=== PATIENT | female | born 1975 | race Two or more races ===

== ENCOUNTER 2016-10-18 07:14 | Inpatient (IN) | payer MEDICAID ==
[2016-10-18] MEDS ORDERED: OXYTOCIN IN LR 500 ML IV ONE ×2 (08:33→08:40)
[2016-10-18] MEDS ORDERED: SODIUM CHLORIDE 0.9% FLUSH 10 ML ONE (08:39)
[2016-10-18] MEDS ORDERED: LIDOCAINE Viscous 2% 15 ML UDCUP ONE (08:39)
[2016-10-18] MEDS ORDERED: OXYTOCIN 10 UNITS/ML VIAL ONE (08:39)
[2016-10-18] MEDS ORDERED: MINERAL OIL 25 ML BOT ONE (08:39)
[2016-10-18] MEDS ORDERED: IV START KIT ONE (08:39)
[2016-10-18] MEDS ORDERED: LIDOCAINE 1% (PRES FREE) 30 ML VIAL ONE (08:39)
[2016-10-18] MEDS ORDERED: PUMP TUBING ONE (08:40)
[2016-10-18 09:35] LABS: HEMATOCRIT 33.4 % (37.0-47.0); HEMOGLOBIN 10.9 gm/l (12.0-16.0); MEAN CELL VOLUME 81.1 fl (81.0-99.0); MEAN CORPUSCULAR HEMOGLOBIN 26.5 pg (27.0-31.0); MEAN CORPUSCULAR HGB CONC 32.6 g/dl (33.0-37.0); RED CELL DISTRIBUTION WIDTH 13.6 % (11.5-14.5)
[2016-10-18] MEDS ORDERED: LIDOCAINE 1% (PRES FREE) 30 ML VIAL IF ONE (10:46)
[2016-10-18] MEDS ORDERED: MINERAL OIL 25 ML BOT TP ONE (10:46)
[2016-10-18] MEDS ORDERED: MAGNESIUM HYDROXIDE 30 ML UDCUP PO PRN (12:15)
[2016-10-18] MEDS ORDERED: CALCIUM CARBONATE 500 MG TAB.CHEW PO PRN (12:15)
[2016-10-18] MEDS ORDERED: BENZOCAINE/MENTHOL 60 APPLIC/BOT TP PRN (12:15)
[2016-10-18] MEDS ORDERED: LANOLIN 50 APPLIC/7G TUBE TP PRN (12:15)
--- NOTE | 2016-10-18 12:23 | PCMAN ---
OB Admission Note - History : 7 Term: 5 : 1 Abortions (S&E): 0 Livin EDC:: 10/22/16 Gestational Age (weeks): 39 Days (#/7): 2 Admit Cervical Dilation:: 4 Admit Cervical Effacement (%):: 100 Admit Station:: -1 Admit Presentaton:: VERTEX Membrane Status: Intact Labor Onset (Date): 10/18/16 Labor Onset (Time): 05:00 Contractions: Yes Contraction Frequency:: 2-3 min Heart Rate:: 140 Status:: cat 1 EFW:: 3 kg Summary of Course:: Complicated by AMA and grandmultiparity. O/W doing well. - Labs Blood Type: O (+) positive Rubella Status: Immune GBS Status: Negative Abnormal Labs: None - Review of Systems Good FM, no lof or vb. UC's since yesterday at 0500, but today at 0500. No f/c /n/v. No cough or flu like illness. No SHEN, vis changes, ruq pain or new swelling. - Physical Exam General: Afebrile, Moderate Distress (with uc's.) Psych/Mental Status: Mood/Affect Appropriate, Bonding Well Neurological: Alert Lungs: Clear to Auscultation Bilaterally Cardiovascular: Regular Rate and Rhythm, No Murmur Abdomen: Normal Bowel Sounds Extremities: No Edema Skin: Warm, Dry, No Rash - Problems (1) Advanced maternal age (AMA) in Status: Acute Code: [id number] Assessment/Plan: Here in active labor, admit and plan for delivery. Did not have w/u for ama. (2) Normal labor Status: Acute Code: O80 Assessment/Plan: Does not desire meds or epidural. Cat 1 FHT's. VSSAF. Admit for expectant management. All labs and hx reviewed.
--- NOTE | 2016-10-18 12:26 | PCMDEL ---
Delivery Note - Labor 1st stage (hr/min):: [id number] 2nd stage (hr/min):: 9 min 3rd stage (hr/min):: 7 min Total (hr/min):: 6hr 9min Pushed (hr/min):: 9 min - Delivery Delivery (Date): 10/18/16 Delivery (Time): 11:02 Gender: Female Presentation: Cephalic Position: OA Umbilical Cord: 3 Vessel Delayed Cord Clamping:: 2-3 min Placenta:: wnl EBL:: 300ml Perineum:: 1st degree perineal lac. Suture:: 4-0 vicryl in usual fashion. Anesthesia/Meds:: local lido Length ROM:: 1.5 hour Comments:: of vigorous female over first degree perineal lac and particulate mec. Had bradycardia with the last few pushes that resolved with positional changes and O2. Baby did not require intubation as breathing without difficulty.
[2016-10-18] MEDS: HYDROCODONE/ACETAMINOPHEN 5/325MG TABLET PO PRN ×2 (12:27→17:52)
[2016-10-18] MEDS: IBUPROFEN 600 MG TABLET PO PRN ×2 (12:28→18:51)
[2016-10-18 14:04] VITALS: BMI 27.6
[2016-10-18] MEDS: DOCUSATE SODIUM 100 MG CAPSULE PO PRN (17:52)
[2016-10-19 07:00] LABS: HEMATOCRIT 29.7 % (37.0-47.0); HEMOGLOBIN 9.6 gm/l (12.0-16.0)
[2016-10-19] MEDS: DOCUSATE SODIUM 100 MG CAPSULE PO PRN ×2 (11:24→20:30)
[2016-10-19] MEDS: IBUPROFEN 600 MG TABLET PO PRN ×2 (11:24→20:30)
--- NOTE | 2016-10-19 20:14 | PDOC44 ---
- Subjective Day: 1 Doing well. Wants to stay another night. Able to void, ambulate, take POs. No fever or chills. Reports Flatus, Reports Pain Tolerable, Reports , Reports Tolerating Regular Diet, Denies Nausea, Denies Vomiting - Objective Temp Pulse Resp BP Pulse Ox 98.9 F 76 16 115/86 10/19/16 14:50 10/19/16 14:50 10/19/16 14:50 10/19/16 14:50 Lab Results 10/19/16 06:15 Hgb 9.6 L Hct 29.7 L Current Medications Generic Name Dose Route Start Last Admin Trade Name Freq PRN Reason Stop Dose Admin Acetaminophen/Hydrocodone Bitart 1 - 2 tab 10/18/16 12:15 10/18/16 17:52 [place] 5/325 PO 2 tab Q4H PRN Administration Pain (Moderate) Benzocaine/Menthol 1 applic 10/18/16 12:15 10/19/16 11:50 Dermoplast TP 1 bot PRN PRN Administration Patient Comfort Calcium Carbonate/Glycine 500 - 1,000 mg 10/18/16 12:15 Tums PO BID PRN Indigestion Docusate Sodium 100 mg 10/18/16 12:15 10/19/16 11:24 Colace PO 100 mg DAILY PRN Administration Comfort Emollient Ointment 1 applic 10/18/16 12:15 10/19/16 11:51 [id number] TP 1 tube PRN PRN Administration sore nipples Ibuprofen 600 mg 10/18/16 12:15 10/19/16 11:24 Motrin PO 600 mg Q6H PRN Administration Pain (Mild) Magnesium Hydroxide 30 ml 10/18/16 12:15 Milk Of Magnesia PO BEDTIME PRN Constipation Sodium Chloride 10 ml 10/18/16 08:33 10/18/16 12:33 Normal Saline 10ml Flush IV 10 ml PRN PRN Administration IV Flush Sodium Chloride 10 ml 10/18/16 09:00 10/19/16 17:11 Normal Saline 10ml Flush IV Not Given Q8HR CRISTIAN - Physical Exam General: Afebrile, No Acute Distress Psych/Mental Status: Mood/Affect Appropriate, Judgment/Insight Intact, Bonding Well Neurological: Grossly Intact, Alert, Normal Gait, Normal Speech HEENT: Atraumatic, Mucous membr. moist/pink Lungs: Clear to Auscultation Bilaterally Cardiovascular: Regular Rate and Rhythm Breast: Soft Fundus: Firm, Midline Extremities: Full ROM, No Edema, No Tenderness Skin: Normal Color, Warm, Dry, Intact, No Rash - Problems:Assessment/Plan (1) Advanced maternal age (AMA) in Status: Acute Assessment/Plan: Presented in active labor, had . Did not have w/u for ama. (2) (spontaneous vaginal delivery) Status: Acute Assessment/Plan: Doing well PPD#1 s/p uncomplicated Routine PP care Support BF Anticipate DC home in AM Disposition: Stable, Anticipate DC Home Tomorrow
[2016-10-20 07:40] VITALS: BP 97/78
[2016-10-20] MEDS: IBUPROFEN 600 MG TABLET PO PRN (08:14)
--- NOTE | 2016-10-20 11:59 | PDOC39B ---
Hospital Course: ADMIT DATE: 10/18/16 DISCHARGE DATE: 10/20/16 ADMISSION DIAGNOSES: Intrauterine at term PROCEDURES: none HISTORY OF PRESENT ILLNESS: 41 year old G7 T5 L7 at 39 weeks 2 days presented in active labor. HOSPITAL COURSE: The patient had normal vaginal delivery on 10/18/16. By day of discharge the patient is ambulating, eating, voiding, and passing flatus without difficulty. Pain is controlled and lochia is appropriate. She is . - Physical Exam Vital Signs: Temp Pulse Resp BP Pulse Ox 98.4 F 86 16 97/78 10/20/16 07:29 10/20/16 07:29 10/20/16 07:29 10/20/16 07:29 General: Afebrile Psych/Mental Status: Mood/Affect Appropriate, Judgment/Insight Intact, Bonding Well Neurological: Grossly Intact, Alert HEENT: Atraumatic, EOMI Lungs: Clear to Auscultation Bilaterally, Normal Air Movement Cardiovascular: Regular Rate and Rhythm, Normal S1, Normal S2 Breast: Soft Fundus: Firm, Midline, Below Umbilicus Rectal Exam: Deferred - Discharge Diagnosis (1) (spontaneous vaginal delivery) Status: Acute Assessment/Plan: Doing well PPD#2 s/p uncomplicated Routine PP care Support BF Stable for dc home. - Discharge Plan Condition: Stable Disposition: Home Instruction Forms: Vaginal Discharge Instructions Prescriptions: Docusate Sodium [COLACE 100 MG CAPSULE (SHF)] 100 mg PO BID PRN #60 capsule PRN Reason: Comfort Ibuprofen [IBUPROFEN 600 MG TABLET (SHF)] 600 mg PO Q6H PRN #100 tablet PRN Reason: Pain (Mild) Follow-Up: Jacque López MD [Primary Care Provider] - In 6 weeks
== END 2016-10-20 13:05 | disposition home or self-care (01) | DRG 775 ==
LOC: FBCOUT 07:14 → FBC 07:16 → FBCOUT 07:36 → FBC 07:37
PROVIDERS: ADMIT Family Medicine; ATTEND Family Medicine
PROC: 0HQ9XZZ Repair Perineum Skin, External Approach (ICD-10-PCS; principal; 2016-10-18)
PROC: 10E0XZZ Delivery of Products of Conception, External Approach (ICD-10-PCS; 2016-10-18)
DX: O70.0 First degree perineal laceration during delivery (principal); O09.523 Supervision of elderly multigravida, third trimester; O09.43 Supervision of pregnancy with grand multiparity, third trimester; Z3A.39 39 weeks gestation of pregnancy; O77.0 Labor and delivery complicated by meconium in amniotic fluid; Z37.0 Single live birth

== ENCOUNTER 2016-11-30 17:24 | Emergency (ER) | payer MEDICAID ==
[2016-11-30] MEDS ORDERED: ACETAMINOPHEN 500 MG TABLET ONE (18:28)
[2016-11-30] MEDS ORDERED: MECLIZINE HCL 25 MG TABLET ONE (18:28)
[2016-11-30 18:40] LABS: URINE APPEARANCE CLEAR; URINE BILIRUBIN NEGATIVE (NEGATIVE); URINE BLOOD 2+ (NEGATIVE); URINE COLOR YELLOW; URINE GLUCOSE (UA) NEGATIVE (NEGATIVE); URINE LEUKOCYTE ESTERASE NEGATIVE (NEGATIVE); URINE NITRITE NEGATIVE (NEGATIVE); URINE PROTEIN NEGATIVE (NEGATIVE); URINE UROBILINOGEN NORMAL (0-1 mg/dl)
[2016-11-30 18:42] LABS: HCG,QUALITATIVE URINE NEGATIVE
[2016-11-30 19:05] LABS: URINE EPITHELIAL CELLS 0-1 /hpf; URINE WBC 0-1 /hpf
[2016-11-30 19:06] LABS: URINE BACTERIA RARE
== END 2016-11-30 19:07 | disposition home or self-care (01) ==
LOC: ED 17:24
DX: R42 Dizziness and giddiness (principal)
CPT/HCPCS: 81025; 81001; 99283 ×2; A9270 ×2